=== PATIENT | male | born 1960 | race Caucasian/White ===

== ENCOUNTER 2020-09-20 07:17 | Day surgery (SDC) | payer BC ==
[2020-09-19 19:32] VITALS: BMI 38.0
[2020-09-20] MEDS ORDERED: PROPOFOL 20 ML ONE ×3 (07:53)
[2020-09-20] MEDS ORDERED: LIDOCAINE HCL/PF 2% SDV 5ML VIAL ONE (07:53)
[2020-09-20 09:07] VITALS: TEMP 97.7
[2020-09-20 09:23] VITALS: BP 140/84; PULSE 77
== END 2020-09-20 09:30 | disposition home or self-care (01) ==
LOC: FASU-ENDO 07:17
PROVIDERS: ATTEND Internal Medicine Gastroenterology
PROC: 0DBN8ZX Excision of Sigmoid Colon, Via Natural or Artificial Opening Endoscopic, Diagnostic (ICD-10-PCS; principal; 2020-09-20 08:27)
DX: Z12.11 Encounter for screening for malignant neoplasm of colon (principal); K57.30 Diverticulosis of large intestine without perforation or abscess without bleeding; K63.89 Other specified diseases of intestine
CPT/HCPCS: 88305-TC